=== PATIENT | male | born 1990 | race African-American/Black ===

== ENCOUNTER 2021-06-08 12:07 | Emergency (ER) | payer OTHER ==
[2021-06-08 14:07] LABS: #Lymphocytes 1.5 thou/uL (1.20-3.40); #Monocytes 1.1 thou/uL (0.11-0.59); #Neutrophils 7.9 thou/uL (1.40-6.50); %Basophils 0.3 % (0.0-1.0); %Eosinophils 0.1 % (0.0-10.0); %Lymphocytes 14.2 % (21.0-51.0); %Monocytes 10.3 % (0.0-10.0); %Neutrophils 75.1 % (42.0-75.0); Hemoglobin 17.1 g/dL (14.0-18.0); Mean Corpuscular Hemoglobin 33.5 pg (27.0-31.0); Mean Corpuscular Volume 98.6 fL (78.0-98.0); Mean Platelet Volume 6.9 fL (7.4-10.4); Platelet Count 226 thou/uL (130-400); RBC Distribution Width 12.6 % (11.5-14.5); Red Blood Cell (RBC) Count 5.11 mill/uL (4.70-6.10); White Blood Cell (WBC) Count 10.5 thou/uL (4.8-10.8)
[2021-06-08 14:37] LABS: ALT (SGPT) 12 U/L (8-55); AST (SGOT) 18 U/L (5-34); Albumin 4.6 g/dL (3.5-5.0); Alkaline Phosphatase 76 U/L (40-110); Anion Gap 14 mmol/L (10-20); BUN (Urea Nitrogen) 12 mg/dL (8.9-20.6); Bilirubin, Total 0.5 mg/dL (0.2-1.2); Calc. Creatinine Clearance 0 mL/min (70-130); Calcium 9.7 mg/dL (7.8-10.44); Carbon Dioxide 25 mmol/L (22-29); Chloride 103 mmol/L (98-107); Globulin 3.3 g/dL (2.4-3.5); Glucose 81 mg/dL (70-105); Potassium 3.5 mmol/L (3.5-5.1); Protein, Total 7.9 g/dL (6.0-8.3); Sodium 138 mmol/L (136-145)
[2021-06-08] MEDS ORDERED: Ondansetron ODT 4 MG TAB ONE (15:33)
[2021-06-08] MEDS ORDERED: Lidocaine Viscous Sol 2% 15 ml UD Cup ONE (15:34)
[2021-06-08] MEDS ORDERED: Milk Of Magnesia 30 ML UDCUP ONE (15:34)
[2021-06-09 07:50] LABS: SARS-CoV-2 PCR by NAA DETECTED (NotDetected)
== END 2021-06-08 18:20 | disposition home or self-care (01) ==
LOC: ERS 12:07
DX: U07.1 COVID-19 (principal); A08.4 Viral intestinal infection, unspecified
CPT/HCPCS: 36415; 71045; 80053; 83690; 84484; 85025; 93005; Q0162; U0003; U0005